=== PATIENT | female | born 1935 | race Caucasian/White ===

== ENCOUNTER 2021-12-08 19:00 | Emergency (ER) | payer MEDICARE, BC ==
[~2021-12-08] VITALS: Ht 162.6 cm; Wt 63.5 kg
[~2021-12-08 19:00] MED LIST: ALLO100T56 PO; LEVO75TA7 PO; SPIR100T5 PO
--- NOTE | 2021-12-08 22:00 | NUR ---
Patient was called to have vital signs re check due to patient being placed back to waiting room after being triaged but was not present. Patient was triaged but was not seen by ERMD.
== END 2021-12-08 22:00 | disposition left against medical advice (07) ==
LOC: ER 19:00
DX: Z53.21 Procedure and treatment not carried out due to patient leaving prior to being seen by health care provider (principal)

== ENCOUNTER 2021-12-09 10:14 | Emergency (ER) | payer MEDICARE, BC ==
[~2021-12-09] VITALS: Ht 162.6 cm; Wt 63.5 kg
[2021-12-09 11:27] LABS: CARBON DIOXIDE 32 mmol/L (21-32); CHLORIDE 104 mmol/L (98-107); CREATININE 0.9 mg/dL (0.6-1.3); GLUCOSE 114 mg/dL (74-106); POTASSIUM 4.5 mmol/L (3.5-5.1); UREA NITROGEN, BLOOD 15 mg/dL (7-18)
[2021-12-09 11:43] LABS: ALANINE AMINOTRANSFERASE 41 U/L (14-59); ALKALINE PHOSPHATASE 99 U/L (50-136); ASPARTATE AMINOTRANSFERASE 53 U/L (15-37); BILIRUBIN,DIRECT 0.9 mg/dL (0.0-0.2); BILIRUBIN,TOTAL 2.2 mg/dL (0.2-1.0); TOTAL PROTEIN, SERUM 6.9 g/dL (6.4-8.2)
[2021-12-09 11:59] LABS: HEMATOCRIT 38.9 % (31.2-41.9); MEAN CORPUSCULAR HEMOGLOBIN 34.8 uug (24.7-32.8); MEAN CORPUSCULAR VOLUME 102.1 fL (75.5-95.3); PLATELET COUNT (AUTO) 124 K/uL (179-408)
--- NOTE | 2021-12-09 12:43 | NUR ---
Patient discharged to home in stable condition with slow steady gait. Written and verbal after care instructions given. Patient verbalized understanding and compliance of instructions. Stressed follow up with primary doctor or return to ER for worsening s/s. Copies of all tests' results given to patient.
[2021-12-09 12:44] VITALS: BP 61/53
== END 2021-12-09 12:44 | disposition home or self-care (01) ==
LOC: ER 10:14
DX: S80.12XA Contusion of left lower leg, initial encounter (principal); W10.9XXA Fall (on) (from) unspecified stairs and steps, initial encounter; Y92.89 Other specified places as the place of occurrence of the external cause; I87.2 Venous insufficiency (chronic) (peripheral); R60.0 Localized edema; K81.0 Acute cholecystitis; E07.9 Disorder of thyroid, unspecified; Z79.890 Hormone replacement therapy; D75.89 Other specified diseases of blood and blood-forming organs; D69.6 Thrombocytopenia, unspecified; R17 Unspecified jaundice; R79.89 Other specified abnormal findings of blood chemistry
CPT/HCPCS: 36415; 71045; 84484; 85025; A4663

== ENCOUNTER 2022-06-25 16:05 | Emergency (ER) | payer MEDICARE, BC ==
[~2022-06-25] VITALS: Ht 162.6 cm; Wt 68.0 kg
[2022-06-25 17:27] LABS: HEMATOCRIT 39.1 % (31.2-41.9); MEAN CORPUSCULAR HEMOGLOBIN 35.4 uug (24.7-32.8); MEAN CORPUSCULAR VOLUME 103.5 fL (75.5-95.3); PLATELET COUNT (AUTO) 199 K/uL (179-408)
--- NOTE | 2022-06-25 17:31 | NUR ---
PT IS IN ROOM #2A. DR GARZA EVALUATED THE PT.
[2022-06-25 17:33] LABS: BILIRUBIN,DIRECT 2.8 mg/dL (0.0-0.2); BILIRUBIN,TOTAL 3.3 mg/dL (0.2-1.0); TOTAL PROTEIN, SERUM 6.3 g/dL (6.4-8.2)
[2022-06-25 17:56] LABS: CREATININE 0.6 mg/dL (0.6-1.3); POTASSIUM 3.3 mmol/L (3.5-5.1)
--- NOTE | 2022-06-25 18:42 | NUR ---
pt was d/c'D to home. d/c instructions given to the pt by dr dong.
[2022-06-25 18:43] VITALS: BP 132/66
== END 2022-06-25 18:44 | disposition home or self-care (01) ==
LOC: ER 16:05
DX: S01.81XA Laceration without foreign body of other part of head, initial encounter (principal); S09.90XA Unspecified injury of head, initial encounter; W10.9XXA Fall (on) (from) unspecified stairs and steps, initial encounter; Y92.89 Other specified places as the place of occurrence of the external cause; E07.9 Disorder of thyroid, unspecified; Z79.890 Hormone replacement therapy; I87.2 Venous insufficiency (chronic) (peripheral); R60.0 Localized edema
CPT/HCPCS: 36415; 70450; 85025; 85730; A4663

== ENCOUNTER 2022-09-05 12:34 | Emergency (ER) | payer MEDICARE, BC ==
[~2022-09-05] VITALS: Ht 162.6 cm; Wt 56.7 kg
--- NOTE | 2022-09-05 12:35 | NUR ---
[email or web address], medical screening exam in progress.
[2022-09-05] MEDS ORDERED: TDAP DIPH,PERTUSS,TET VAC/PF 0.5 ML DISP.SYRIN IM ONE ×2 (12:45→13:22)
[2022-09-05] MEDS ORDERED: NEOMY/BACITRA/POLYMYXIN B OINT UD PACKET TP ONE ×2 (12:45→13:21)
[2022-09-05] MEDS ORDERED: ACETAMINOPHEN ES 500 MG TABLET PO ONE (12:45)
[2022-09-05] MEDS ORDERED: ACETAMINOPHEN ES 500 MG TABLET ONE (13:21)
--- NOTE | 2022-09-05 13:44 | NUR ---
Patient is resting comfortably on gurney with eyes closed, pending radiology scans results at this time, NAD.
--- NOTE | 2022-09-05 14:29 | NUR ---
1406: Patient is in the bathroom at this time. Patient is for discharged to home by Dr Zuniga. Written and verbal after care instructions given to patient and adult son. Patient and son verbalized understanding and compliance of instructions. Stressed follow up with primary doctor or return to ER for worsening s/s.
[2022-09-05 14:30] VITALS: BP 100/66
== END 2022-09-05 14:31 | disposition home or self-care (01) ==
LOC: ER 12:34
DX: S01.01XA Laceration without foreign body of scalp, initial encounter (principal); S51.812A Laceration without foreign body of left forearm, initial encounter; R51.9 Headache, unspecified; M54.2 Cervicalgia; Z79.899 Other long term (current) drug therapy; W01.0XXA Fall on same level from slipping, tripping and stumbling without subsequent striking against object, initial encounter; Y93.89 Activity, other specified; Y92.89 Other specified places as the place of occurrence of the external cause; Y99.8 Other external cause status
CPT/HCPCS: 70450; 72125; 73080; 90715; A4663; A9150

== ENCOUNTER 2022-09-15 08:37 | Emergency (ER) | payer MEDICARE, BC ==
[~2022-09-15] VITALS: Ht 162.6 cm; Wt 56.2 kg
--- NOTE | 2022-09-15 08:49 | NUR ---
Pt seen by MD for bedside eval. Safety measures in place. Will continue to monitor.
--- NOTE | 2022-09-15 08:53 | NUR ---
[place] removed by ER MD, patient is without any c/o at this time. [place] that connie have been in x 10 days. Patient remains stable for discharge home with family, verbal instructions given.
--- NOTE | 2022-09-15 08:55 | NUR ---
Patient discharged to home in stable condition. Written and verbal after care instructions given. Patient verbalizes understanding of instructions. Stressed follow up or return to ER for worsening s/s.
[2022-09-15 08:56] VITALS: BP 94/41
== END 2022-09-15 09:00 | disposition home or self-care (01) ==
LOC: ER 08:37
DX: S01.01XD Laceration without foreign body of scalp, subsequent encounter (principal); Z79.899 Other long term (current) drug therapy; W18.39XD Other fall on same level, subsequent encounter
CPT/HCPCS: A4663

== ENCOUNTER 2022-11-18 06:27 | Emergency (ER) | payer MEDICARE, BC ==
[~2022-11-18] VITALS: Ht 162.6 cm; Wt 68.0 kg
[2022-11-18] MEDS ORDERED: ACETAMINOPHEN 325 MG TABLET PO ONE (06:45)
[2022-11-18] MEDS ORDERED: ACETAMINOPHEN 325 MG TABLET ONE (06:46)
[2022-11-18 07:45] LABS: BASOPHILS # (AUTO) 0.1 K/UL (0.0-0.2); BASOPHILS % (AUTO) 0.6 % (0.0-2.0); EOSINOPHILS % (AUTO) 0.1 % (0.0-7.0); HEMATOCRIT 36.4 % (31.2-41.9); HEMOGLOBIN 12.6 g/dL (10.9-14.3); LYMPHOCYTES # (AUTO) 2.7 K/uL (0.8-4.8); LYMPHOCYTES % (AUTO) 27.6 % (20.5-51.5); MEAN CORPUSCULAR HEMOGLOBIN 36.4 uug (24.7-32.8); MEAN CORPUSCULAR HGB CONC 35 g/dL (32.3-35.6); MONOCYTES # (AUTO) 0.9 K/uL (0.1-1.30); MONOCYTES % (AUTO) 9.3 % (0.0-11.0); NEUTROPHILS % (AUTO) 62.4 % (38.5-71.5); PLATELET COUNT (AUTO) 217 K/uL (179-408); RED BLOOD CELL COUNT(AUTO) 3.47 MIL/uL (3.63-4.92); RED CELL DISTRIBUTION WIDTH 14.3 % (12.3-17.7); WHITE BLOOD COUNT (AUTO) 9.7 K/uL (3.8-11.8)
[2022-11-18 07:56] LABS: DIFFERENTIAL COMMENT 1
[2022-11-18 07:59] LABS: CALCIUM 8.3 mg/dL (8.5-10.1); CARBON DIOXIDE 23 mmol/L (21-32); CHLORIDE 101 mmol/L (98-107); CREATININE 1.2 mg/dL (0.6-1.3); GLUCOSE 135 mg/dL (74-106); POTASSIUM 4.4 mmol/L (3.5-5.1); SODIUM SERUM 133 mmol/L (136-145); UREA NITROGEN, BLOOD 21 mg/dL (7-18)
[2022-11-18 08:02] LABS: ALKALINE PHOSPHATASE 162 U/L (50-136)
[2022-11-18 08:04] LABS: ALANINE AMINOTRANSFERASE 22 U/L (14-59); ALBUMIN 1.6 g/dL (3.4-5.0); ASPARTATE AMINOTRANSFERASE 35 U/L (15-37); BILIRUBIN,DIRECT 1.9 mg/dL (0.0-0.2); BILIRUBIN,TOTAL 2.4 mg/dL (0.2-1.0); LIPASE 47 U/L (73-393); TOTAL PROTEIN, SERUM 5.5 g/dL (6.4-8.2)
[2022-11-18 10:08] VITALS: BP 101/68; TEMP 98.7; O2SAT 97
== END 2022-11-18 10:09 | disposition home or self-care (01) ==
LOC: ER 06:36
DX: S22.32XA Fracture of one rib, left side, initial encounter for closed fracture (principal); K74.60 Unspecified cirrhosis of liver; Z79.899 Other long term (current) drug therapy; W01.0XXA Fall on same level from slipping, tripping and stumbling without subsequent striking against object, initial encounter; Y93.89 Activity, other specified; Y92.89 Other specified places as the place of occurrence of the external cause; Y99.8 Other external cause status
CPT/HCPCS: 36415; 71250; 83690; 85025; 85730; 86850; 86900; 86901; A4663